=== PATIENT | male | born 1950 | race Caucasian/White ===

== ENCOUNTER 2023-04-14 13:19 | Outpatient (CLI) | payer MEDICARE, SELFPAY ==
--- NOTE | ~2023-04-14 | XR_ITS ---
EXAMINATION: XR lg joint inject/asp w image, XR lg joint inject/asp add DATE: 04/14/2023 14:27 INDICATION: Bilateral shoulder pain TECHNIQUE: A time-out was performed to verify the patient's name, date of , and procedure to b e performed. The procedure including the risks, benefits, and alternatives was discussed with the pat ient. Risks discussed included bleeding and infection. The patient understood the risks and agreed to proceed. Attention was first turned to the right glenohumeral joint. The skin overlying the rotator cuff interval of the right glenohumeral joint was prepped and draped in usual sterile fashion. Anest hetic was administered with 1% lidocaine subcutaneously. A 22 G needle was advanced under fluoroscop ic guidance into the joint. Injection of 1 mL of Omnipaque 240 confirmed intra-articular position of the needle. Subsequently, injectate consisting of 5 mm a 4:1 mixture of 1% lidocaine: 80 mg/mL Depo -Medrol for a total dosage of 80 mg Depo-Medrol was instilled. Washout of contrast was seen confirmin g intra-articular administration. The needle was removed and the entry site was cleaned and dressed. Attention was then turned to the left glenohumeral joint. The skin overlying the rotator cuff interva l of the left glenohumeral joint was prepped and draped in usual sterile fashion. Anesthetic was adm inistered with 1% lidocaine subcutaneously. A 22 G needle was advanced under fluoroscopic guidance i nto the joint. Injection of 1 mL of Omnipaque 240 confirmed intra-articular position of the needle. Subsequently, injectate consisting of 5 mm a 4:1 mixture of 1% lidocaine: 80 mg/mL Depo-Medrol for a total dosage of 80 mg Depo-Medrol was instilled. Washout of contrast was seen confirming intra-artic ular administration. The needle was removed and the entry site was cleaned and dressed. There were no immediate complications. Fluoroscopy exposure time for the combined procedures was 0.1 minutes. The total number of images was 2. FINDINGS: Real-time fluoroscopy demonstrates the needle in first the right glenohumeral joint and sub sequently the left glenohumeral joint. Patient's pain prior to procedure:11/03. Patient's pain follow ing the procedure: 06/06. IMPRESSION: 1. Successful right glenohumeral joint injection of local anesthetic and steroid with decrease in the patient's presenting pain. 2. Successful right glenohumeral joint injection of local anesthetic and steroid with decrease in the patient's presenting pain. Reviewed, dictated and finalized at location A. FACTS CONSERVATOR IMPRESSION: 1. Successful right glenohumeral joint injection of local anesthetic and steroi d with decrease in the patient's presenting pain. 2. Successful right glenohumeral joint injection of local anesthetic and steroi d with decrease in the patient's presenting pain.
== END 2023-04-14 13:20 | disposition home or self-care (01) ==
LOC: ANHIMG 13:25
PROVIDERS: PCP Family Medicine; Visit Provider Orthopaedic Surgery
DX: M19.012 Primary osteoarthritis, left shoulder (principal); M19.011 Primary osteoarthritis, right shoulder
CPT/HCPCS: 20610; 77002; J1040; Q9966

== ENCOUNTER 2023-05-14 07:21 | Outpatient (CLI) | payer MEDICARE, SELFPAY ==
--- NOTE | ~2023-05-14 | MR_ITS ---
EXAMINATION: MR shoulder RT wo con DATE: 05/14/2023 08:46 INDICATION: Right shoulder pain TECHNIQUE: Magnetic resonance imaging (MRI) of the right shoulder was performed without intravenous c ontrast. Sequences included axial PD-weighted FS FSE, coronal oblique PD-weighted FS FSE, coronal obl ique T2-weighted FS FSE, sagittal PD-weighted FS FSE, and sagittal T1-weighted SE. COMPARISON: None. FINDINGS: Coracoacromial arch: The acromion undersurface is curved in morphology (type II). The coracoacromial ligament is normal. M oderate acromioclavicular osteoarthritis. Small loose osteochondral body versus heterotopic ossificat ion along the cephalad capsule of the acromioclavicular joint space. Rotator cuff: Moderate supraspinatus and mild infraspinatus tendinopathy without tear. The teres minor tendon is no rmal. Additional moderate subscapularis tendinopathy with small longitudinal split tear which extends a few millimeters medially from the portion of the tendon attached to the superolateral margin of th e lesser tuberosity footplate and the more superficial portion of the tendon which remains contiguous with the intact transverse humeral ligament. Normal rotator cuff muscle bulk and signal. Biceps tendon, glenoid labrum and glenohumeral cartilage: There is partial subluxation of a small portion of the long head biceps tendon into the subscapularis tendon split tear defect along the medial rim of the cephalad-most aspect of the intertubercular harriet ove. Mild tendinopathy without discrete tear of the intra-articular portion of the long head biceps t endon. Initially circumferential tear of the right glenoid labrum with likely associated subarticular cystic changes along the rim of the 9:00-5:00 position of the posterior inferior labrum as well as a t the 12:00 position at the insertion of the biceps labral complex. There is deep chondral ulceration at the posterior inferior glenoid with less severe partial thickness cartilage loss along the more c ephalad glenoid. Cartilage thickness appears relatively preserved at the humeral head but with some s cattered chondral surface regularity. Fluid: Small glenohumeral joint effusion with extension the long head biceps tendon sheath. There is some sy novitis at the axillary in the deep subscapular recesses of the joint space. There are a few <5 mm lo w signal intensity loose bodies within the long head biceps tendon sheath. Small amount of fluid in t he subacromial/subdeltoid bursa consistent with mild bursitis. Bones: Normal marrow signal with no fracture or pathologic marrow replacing process. Mild cystic change at t he greater tuberosity. There is increased soft tissue replacing much of the normal fat signal at the rotator cuff interval which can be seen in the setting of adhesive capsulitis. IMPRESSION: 1. Rotator cuff tendinopathy, mild infraspinatus and moderate at the supraspinatus and subscapularis tendons with very small subscapularis tendon longitudinal split tear along the superolateral aspect o f the lesser tuberosity footplate allowing partial subluxation of the long head biceps tendon into th e tear defect. 2. Mild tendinopathy without tear of the intra-articular long head biceps tendon. 3. Moderate glenohumeral osteoarthritis with high-grade glenoid chondromalacia and circumferential te ar of the glenoid labrum. 4. Mild subacromial/subdeltoid bursitis. 5. Moderate acromioclavicular osteoarthritis. 6. Increased soft tissue at the rotator cuff interval which can be seen in the setting of adhesive ca psulitis which is ultimately a clinical diagnosis. Reviewed, dictated and finalized at location A. [employer]ING OFFICER [employer] IMPRESSION: 1. Rotator cuff tendinopathy, mild infraspinatus and moderate at the supraspina tus and subscapularis tendons with very small sub
--- NOTE | ~2023-05-14 | MR_ITS ---
EXAMINATION: MR shoulder LT wo con DATE: 05/14/2023 08:46 INDICATION: Left shoulder pain TECHNIQUE: Magnetic resonance imaging (MRI) of the left shoulder was performed without intravenous co ntrast. Sequences included axial PD-weighted FS FSE, coronal oblique PD-weighted FS FSE, coronal obli que T2-weighted FS FSE, sagittal PD-weighted FS FSE, and sagittal T1-weighted SE. COMPARISON: None. FINDINGS: Coracoacromial arch: The acromion undersurface is curved in morphology (type II). The coracoacromial ligament is normal. M oderate acromioclavicular osteoarthritis. Rotator cuff: Moderate supraspinatus and mild infraspinatus tendinopathy without tear. There is also mild subscapul neeta tendinopathy without tear. The teres minor tendon is normal. Normal rotator cuff muscle bulk and signal. Biceps tendon, glenoid labrum and glenohumeral cartilage: Long head biceps tendon is not visualized and likely torn and retracted distal to the [id number]. Near circumferential tear of the left glenoid labrum which appears to spare the 3:00-o'clock position of the anteroinferior labrum. There is deep/near full-thickness chondral ulceration at the anterosup erior glenoid as well as along the inferior to posterior inferior rim of the glenoid, the latter with associated subarticular cystic changes. Mild partial-thickness cartilage loss with chondral surface regularity along the inferomedial and superomedial aspects of the humeral head. Fluid: Physiologic amount of fluid in the glenohumeral joint and biceps tendon sheath with mild synovitis at the axillary recess. No loose osteochondral bodies. Minimal fluid in the subacromial/subdeltoid bur sa consistent with minimal bursitis. Bones: Normal marrow signal with no fracture or pathologic marrow replacing process. Additional mild cystic change at the greater tuberosity. There is increased soft tissue replacing much of the normal fat sig nal at the rotator cuff interval which can be seen with adhesive capsulitis. IMPRESSION: 1. Mild to moderate rotator cuff tendinopathy without tear. 2. Moderate left glenohumeral osteoarthritis with near circumferential tear of the glenoid labrum and high-grade glenoid chondromalacia. 3. Full-thickness tear and distal retraction of the long head biceps tendon. 4. Moderate acromioclavicular osteoarthritis. 5. Increased soft tissue density rotator cuff interval which can be seen with adhesive capsulitis whi ch is ultimately a clinical diagnosis. Reviewed, dictated and finalized at location A. TERINTELLIGENCE ANALYST IMPRESSION: 1. Mild to moderate rotator cuff tendinopathy without tear. 2. Moderate left glenohumeral osteoarthritis with near circumferential tear of the glenoid labrum and high-grade glenoid chondromalacia. 3. Full-thickness tear and distal retraction of the long head biceps tendon. 4. Moderate acromioclavicular osteoarthritis. 5. Increased soft tissue density rotator cuff interval which can be seen with a dhesive capsulitis which is ultimately a clinical diagnosis.
== END 2023-05-14 07:22 | disposition home or self-care (01) ==
PROVIDERS: PCP Family Medicine; Visit Provider Physician Assistant Surgical
DX: M67.812 Other specified disorders of synovium, left shoulder (principal); M67.813 Other specified disorders of tendon, right shoulder; M19.012 Primary osteoarthritis, left shoulder; M19.011 Primary osteoarthritis, right shoulder; S46.112A Strain of muscle, fascia and tendon of long head of biceps, left arm, initial encounter; M75.51 Bursitis of right shoulder; X58.XXXA Exposure to other specified factors, initial encounter
CPT/HCPCS: 73221

== ENCOUNTER 2023-11-05 13:02 | Outpatient (CLI) | payer MEDICARE, SELFPAY ==
--- NOTE | ~2023-11-05 | XR_ITS ---
EXAMINATION: XR lg joint inject/asp w image, XR lg joint inject/asp add DATE: 11/05/2023 14:43 INDICATION: Bilateral shoulder pain with primary osteoarthritis TECHNIQUE: A time-out was performed to verify the patient's name, date of , and procedure to b e performed. The procedure including the risks, benefits, and alternatives was discussed with the pat ient. Risks discussed included bleeding and infection. The patient understood the risks and agreed to proceed. Attention was first turned to the right glenohumeral joint. The skin overlying the rotator cuff interval of the right glenohumeral joint was prepped and draped in usual sterile fashion. Anest hetic was administered with 1% lidocaine subcutaneously. A 22 G needle was advanced under fluoroscop ic guidance into the joint. Injection of 1 mL of Omnipaque 240 confirmed intra-articular position of the needle. Subsequently, injectate consisting of 5 mm a 4:1 mixture of 1% lidocaine: 80 mg/mL Depo -Medrol for a total dosage of 80 mg Depo-Medrol was instilled. Washout of contrast was seen confirmin g intra-articular administration. The needle was removed and the entry site was cleaned and dressed. Attention was then turned to the left glenohumeral joint. The skin overlying the rotator cuff interva l of the right glenohumeral joint was prepped and draped in usual sterile fashion. Anesthetic was ad ministered with 1% lidocaine subcutaneously. A 22 G needle was advanced under fluoroscopic guidance into the joint. Injection of 1 mL of Omnipaque 240 confirmed intra-articular position of the needle. Subsequently, injectate consisting of 5 mm a 4:1 mixture of 1% lidocaine: 80 mg/mL Depo-Medrol for a total dosage of 80 mg Depo-Medrol was instilled. Washout of contrast was seen confirming intra-analilia cular administration. The needle was removed and the entry site was cleaned and dressed. There were n o immediate complications. Total fluoroscopy exposure time for both procedures was 2.2 minutes. The t otal number of images was 4. Combined total DAP was 0.868 mGycm^2 FINDINGS: Real-time fluoroscopy demonstrates the needle and injected contrast in the right glenohumer al joint. Subsequent fluoroscopy demonstrates the needle and contrast in the left glenohumeral joint. Patient's pain prior to procedure:07/04. Patient's pain following the procedure: 05/06. IMPRESSION: 1. Successful right glenohumeral joint injection of local anesthetic and steroid with decrease in the patient's presenting pain. 2. Successful left glenohumeral joint injection of local anesthetic and steroid with decrease in the patient's presenting pain. Reviewed, dictated and finalized at location A. IMPRESSION: 1. Successful right glenohumeral joint injection of local anesthetic and steroi d with decrease in the patient's presenting pain. 2. Successful left glenohumeral joint injection of local anesthetic and steroid with decrease in the patient's presenting pain.
== END 2023-11-05 13:03 | disposition home or self-care (01) ==
LOC: ANHIMG 13:04
PROVIDERS: PCP Family Medicine; Visit Provider Physician Assistant Surgical
DX: M19.012 Primary osteoarthritis, left shoulder (principal); M19.011 Primary osteoarthritis, right shoulder
CPT/HCPCS: 20610; 77002; J1010; Q9966

== ENCOUNTER 2024-02-17 00:37 | Day surgery (SDC) | payer MEDICARE, SELFPAY ==
[2024-02-03 11:18] VITALS: BMI 32.5
[2024-02-17 06:20] VITALS: BP 161/82; PULSE 66; RESP 20; TEMP 36.1; O2SAT 100; BMI 32.9
[2024-02-17] MEDS: LACTATED RINGERS 1,000 ML 150 ML IV CONT (06:30)
--- NOTE | 2024-02-17 07:07 | WPDANESEPPF ---
Anes - Initial Pre Proc Eval Procedure: Operation Date: 02/17/24 07:30 Proposed Procedures p Screening Colonoscopy - Ifeanyi Bledsoe MD Date/Time: 02/17/24 07:07 Surgeon: Ifeanyi Bledsoe MD Pre Op Diagnosis: Neoplasm screening Patient Data Age: 73 Gender: M Height: 1.75 m Weight: 101.1 kg Last Vital Signs Temp 97 F L 02/17/24 06:20 Pulse 66 02/17/24 06:20 Resp 20 02/17/24 06:20 BP 161/82 H 02/17/24 06:20 Pulse Ox 100 02/17/24 06:20 O2 Del Method Room Air 02/17/24 06:20 Allergies Allergy/AdvReac Type Severity Reaction Status Date / Time No Known Allergies Allergy Verified 02/17/24 06:18 Home Medications Medication Instructions Recorded Confirmed Type allopurinol 300 mg tablet 300 mg PO DAILY 10/21/23 02/17/24 History amlodipine 10 mg tablet 10 mg PO DAILY 10/21/23 02/17/24 History folic acid 1 mg tablet 1 mg PO DAILY 10/21/23 02/17/24 History irbesartan 300 mg tablet 300 mg PO DAILY 10/21/23 02/17/24 History levothyroxine 75 mcg capsule 50 mcg PO DAILY 10/21/23 02/17/24 History methotrexate sodium 2.5 mg tablet 12.5 mg PO BID 10/21/23 02/17/24 History prednisolone 5 mg tablet 5 mg PO DAILY PRN FLARE UP 10/21/23 02/17/24 History tamsulosin 0.4 mg capsule 0.8 mg PO DAILY 10/21/23 02/17/24 History tramadol 50 mg tablet 50 mg PO Q6H PRN Pain 10/21/23 02/17/24 History lifitegrast 5 % eye drops in a 1 drp EACH EYE DAILY 02/03/24 02/17/24 History dropperette (Xiidra) mirtazapine 30 mg tablet 30 mg PO HS 02/03/24 02/17/24 History multivit with minerals-iron 18 1 tablet PO DAILY 02/03/24 02/17/24 History mg-folic ac 400 mcg-vit K 25 mcg tablet (Adults Multivitamin) Patient hx anesthesia problems: none Family hx anesthesia problems: none Results Review: All pre-operative results and documents have been reviewed as part of the pre-operative evaluation. [facility] Past Medical History Medical History Dry eye Inflammatory disorder Ocular rosacea Surgical History Surgical History History of left knee replacement History of repair of ACL History of right knee joint replacement History of shoulder surgery Social History Social History Smoking packs per day: 1 Smoking cigarettes per day: 20.0 Years smoked: 5 Smoking pack-years: 5.00 Smoking status: Former smoker Tobacco type: cigarettes Alcohol intake: current Drinks per week: 1 Alcohol use details: VERY OCC Substance use: never Substance use type: does not use Do You Feel Safe in your Home?: Yes Lack of Transportation: No Lack of Food: Never True Current Housing: I Have Housing Concerned About Future Housing: No Difficulty Paying Gas/Electric Bills: No Difficulty Paying for Meds: No Currently Unemployed: No Education: Decline to Answer Difficulty w/ Childcare or Family Care: No Living arrangements: with family Occupation/Education: retired Spiritual care concerns: No Anes - Eval Final PreProcedure Day of Procedure 02/17/24 07:07 Patient weight: normal Heart: regular rate and rhythm Airway: Mallampati scale class III and special considerations (Missing R lower tooth. ) Neurological: alert and oriented Last oral intake: >/= 8 hours ASA classification: II Emergent: no Anesthetic plan: proceed Anesthesia type and monitoring: general GIVS and standard monitoring Results Review: All pre-operative results and documents have been reviewed as part of the pre-operative evaluation. HTN, hypothyroidism. Informed Consent: The patient's anesthetic plan and its attendant risks and benefits were discussed with the patient/family/POA. Questions were solicited and answers provided to the satisfaction of the patient/family/POA.
--- NOTE | 2024-02-17 07:34 | PM.IMHP ---
H&P: HPI History of Present Illness Date/Time: 02/17/24 07:34 Chief Complaint: History of colon polyps Narrative: The patient has a history of colonic polyps, the last colonoscopy was 5 years ago. Review of Systems Review of Systems: All systems reviewed & are unremarkable except as noted in HPI and below PMFSH Past Medical History Medical History Dry eye Inflammatory disorder Ocular rosacea Surgical History Surgical History History of left knee replacement History of repair of ACL History of right knee joint replacement History of shoulder surgery Social History Social History Smoking packs per day: 1 Smoking cigarettes per day: 20.0 Years smoked: 5 Smoking pack-years: 5.00 Smoking status: Former smoker Tobacco type: cigarettes Alcohol intake: current Drinks per week: 1 Alcohol use details: VERY OCC Substance use: never Substance use type: does not use Do You Feel Safe in your Home?: Yes Lack of Transportation: No Lack of Food: Never True Current Housing: I Have Housing Concerned About Future Housing: No Difficulty Paying Gas/Electric Bills: No Difficulty Paying for Meds: No Currently Unemployed: No Education: Decline to Answer Difficulty w/ Childcare or Family Care: No Living arrangements: with family Occupation/Education: retired Spiritual care concerns: No Meds Home Medications and Allergies Home Medications Medication Instructions Recorded Confirmed Type allopurinol 300 mg tablet 300 mg PO DAILY 10/21/23 02/17/24 History amlodipine 10 mg tablet 10 mg PO DAILY 10/21/23 02/17/24 History folic acid 1 mg tablet 1 mg PO DAILY 10/21/23 02/17/24 History irbesartan 300 mg tablet 300 mg PO DAILY 10/21/23 02/17/24 History levothyroxine 75 mcg capsule 50 mcg PO DAILY 10/21/23 02/17/24 History methotrexate sodium 2.5 mg tablet 12.5 mg PO BID 10/21/23 02/17/24 History prednisolone 5 mg tablet 5 mg PO DAILY PRN FLARE UP 10/21/23 02/17/24 History tamsulosin 0.4 mg capsule 0.8 mg PO DAILY 10/21/23 02/17/24 History tramadol 50 mg tablet 50 mg PO Q6H PRN Pain 10/21/23 02/17/24 History lifitegrast 5 % eye drops in a 1 drp EACH EYE DAILY 02/03/24 02/17/24 History dropperette (Xiidra) mirtazapine 30 mg tablet 30 mg PO HS 02/03/24 02/17/24 History multivit with minerals-iron 18 1 tablet PO DAILY 02/03/24 02/17/24 History mg-folic ac 400 mcg-vit K 25 mcg tablet (Adults Multivitamin) Allergies Allergy/AdvReac Type Severity Reaction Status Date / Time No Known Allergies Allergy Verified 02/17/24 06:18 Vital Signs Vital Signs - 24 hr 02/17/24 06:20 Temperature 97 F L Pulse Rate 66 Respiratory Rate 20 Blood Pressure 161/82 H Pulse Oximetry 100 Oxygen Delivery Room Air Assessment and Plan Assessment and plan (1) History of colonic polyps: Code(s): Z86.0100 - Personal history of colon polyps, unspecified Status: Acute Assessment and Plan: The patient is deemed a good candidate for the procedure. Consent signed. Will proceed.
[2024-02-17 07:57] VITALS: BP 117/77; PULSE 66; RESP 22; O2SAT 99
[2024-02-17 08:07] VITALS: BP 125/84; PULSE 69; RESP 23; O2SAT 100
[2024-02-17 08:17] VITALS: BP 149/85; PULSE 62; RESP 20; O2SAT 100
== END 2024-02-17 08:25 | disposition home or self-care (01) ==
PROVIDERS: PCP Hospitalist; Visit Provider Internal Medicine Gastroenterology
PROC: 0DJD8ZZ Inspection of Lower Intestinal Tract, Via Natural or Artificial Opening Endoscopic (ICD-10-PCS; CPT 45378; principal; 2024-02-17 07:30)
DX: Z12.11 Encounter for screening for malignant neoplasm of colon (principal); Z79.52 Long term (current) use of systemic steroids; Z79.84 Long term (current) use of oral hypoglycemic drugs; Z98.890 Other specified postprocedural states; Z86.0100 Personal history of colon polyps, unspecified; Z87.891 Personal history of nicotine dependence
CPT/HCPCS: G0105; J2003; J2704; J7120